=== PATIENT | male | born 1980 | race Two or more races ===

== ENCOUNTER 2024-03-06 19:06 | Inpatient (IN) | payer MEDICAID, OTHER ==
[~2024-03-06] VITALS: Ht 165.1 cm; Wt 80.5 kg
[2024-03-06 20:39] LABS: Basophils # (auto) 0.1 10 ^3/uL (0-0.2); Basophils % (auto) 0.6 % (0.0-2.0); Eosinophils # (auto) 0.3 10 ^3/uL (0-0.8); Eosinophils % (auto) 3.3 % (0.0-7.0); Hematocrit 44.9 % (41.0-53.0); Hemoglobin 15.4 g/dL (13.5-17.5); Lymphocytes # (auto) 2.8 10 ^3/uL (0.4-5.4); Lymphocytes % (auto) 26.6 % (10.0-50.0); Mean Corpuscular Hemoglobin 30.5 pg (28.0-32.0); Mean Corpuscular Hgb Conc. 34.2 g/dL (32.0-36.0); Mean Corpuscular Volume 89.3 fL (80.0-100.0); Monocytes # (auto) 0.8 10 ^3/uL (0-1.3); Monocytes % (auto) 7.9 % (0.0-12.0); Neutrophils # (auto) 6.4 10 ^3/uL (1.6-8.6); Neutrophils % (auto) 61.6 % (37.0-80.0); Nucleated Red Blood Cells % 0.1 %; Red Blood Cells 5.03 10^6/uL (4.5-5.90); Red Cell Distribution Width 13.2 % (11.8-14.3); White Blood Cell 10.4 10^3/uL (4.4-10.8)
[2024-03-06 21:00] LABS: Alanine Aminotransferase 30 U/L (7-40); Albumin 4.2 g/dL (3.2-4.8); Alkaline Phosphatase 108 U/L (46-116); Anion Gap 7 (5-15); Aspartate Aminotransferase 20 U/L (13-40); BUN/Creatinine Ratio 22.4 (10.0-20.0); Bilirubin, Total 0.6 mg/dL (0.2-1.0); Blood Urea Nitrogen 22 mg/dL (9-23); Calcium 9.3 mg/dL (8.7-10.4); Carbon Dioxide 27 mmol/L (20-30); Chloride 102 mmol/L (98-107); Glucose 94 mg/dL (74-106); Lipase 102 U/L (12-53); Potassium 4.3 mmol/L (3.5-5.1); Sodium 136 mmol/L (136-145); Total Protein 6.9 g/dL (5.7-8.2)
[2024-03-06 22:21] LABS: Urine Bacteria None Seen /hpf (None Seen)
[2024-03-06 22:33] LABS: Urine Blood Negative /uL (Negative); Urine Clarity Clear (Clear); Urine Color Light-Yellow (Yellow); Urine Mucus FEW (None Seen); Urine Protein, UAD Negative (Negative); Urine Specific Gravity 1.018 (1.001-1.035); Urine Urobilinogen Normal (Negative); Urine WBC 1 /hpf (0 - 3); Urine pH 5.5 (5.0-9.0)
[2024-03-06] MEDS: cefTRIAXone 1GM/50ML D5W 50 ML IV ONE (22:39)
[2024-03-06] MEDS: SODIUM CHLORIDE 0.9% 1,000 ML IV ONE ×2 (22:45→23:06)
[2024-03-06 22:47] VITALS: PULSE 85; RESP 20; O2SAT 97
[2024-03-06] MEDS ORDERED: ONDANSETRON HCL 4 MG/2 ML VIAL IV PRN (23:00)
[2024-03-06] MEDS: SODIUM CHLORIDE 0.9% 1,000 ML IV SCH (23:00)
[2024-03-06] MEDS ORDERED: MORPHINE SULFATE INJ 2 MG/ml SYRG IV PRN (23:00)
[2024-03-06] MEDS: metroNIDAZOLE 500MG/100ML 100 ML IV ONE (23:05)
[2024-03-06] MEDS: ONDANSETRON HCL 4 MG/2 ML VIAL IV ONE (23:12)
[2024-03-06] MEDS: MORPHINE SULFATE 4 MG/ML SYR/VIAL IV ONE (23:13)
[2024-03-06] MEDS: HYDROmorphone HCL 2 MG/ML VL/or syr IV ONE ×2 (23:34)
[2024-03-06 23:38] LABS: INR 1.07 (0.9-1.15); Partial Thromboplastin Time 29.9 SEC (24.5-34.5); Prothrombin Time 11.3 sec (9.3-11.8)
[2024-03-07] VITALS (7 sets, daily range): BP systolic 115–131; BP diastolic 54–70; PULSE 54–88; RESP 16–20; TEMP 97.4–98.5; O2SAT 96–100
[2024-03-07] MEDS: metroNIDAZOLE 500MG/100ML 100 ML IV SCH (05:17)
[2024-03-07 06:08] LABS: Basophils # (auto) 0.1 10 ^3/uL (0-0.2); Basophils % (auto) 1.1 % (0.0-2.0); Eosinophils # (auto) 0.3 10 ^3/uL (0-0.8); Eosinophils % (auto) 4.9 % (0.0-7.0); Hematocrit 41.3 % (41.0-53.0); Hemoglobin 14.2 g/dL (13.5-17.5); Lymphocytes # (auto) 1.8 10 ^3/uL (0.4-5.4); Lymphocytes % (auto) 27.1 % (10.0-50.0); Mean Corpuscular Hemoglobin 31.1 pg (28.0-32.0); Mean Corpuscular Hgb Conc. 34.4 g/dL (32.0-36.0); Mean Corpuscular Volume 90.3 fL (80.0-100.0); Monocytes # (auto) 0.6 10 ^3/uL (0-1.3); Monocytes % (auto) 9.4 % (0.0-12.0); Neutrophils # (auto) 3.8 10 ^3/uL (1.6-8.6); Neutrophils % (auto) 57.5 % (37.0-80.0); Red Blood Cells 4.57 10^6/uL (4.5-5.90); White Blood Cell 6.6 10^3/uL (4.4-10.8)
[2024-03-07 06:18] LABS: Alanine Aminotransferase 21 U/L (7-40); Albumin 3.6 g/dL (3.2-4.8); Alkaline Phosphatase 87 U/L (46-116); Anion Gap 3 (5-15); Aspartate Aminotransferase 12 U/L (13-40); BUN/Creatinine Ratio 15.9 (10.0-20.0); Bilirubin, Total 0.7 mg/dL (0.2-1.0); Blood Urea Nitrogen 13 mg/dL (9-23); Calcium 8.5 mg/dL (8.7-10.4); Carbon Dioxide 28 mmol/L (20-30); Chloride 108 mmol/L (98-107); Glucose 108 mg/dL (74-106); Potassium 3.9 mmol/L (3.5-5.1); Sodium 139 mmol/L (136-145); Total Protein 6.1 g/dL (5.7-8.2)
[2024-03-07] MEDS: D5W/ SOD CHL 0.9%/KCL 20MEQ 1,000 ML IV SCH (16:05)
[2024-03-07] MEDS: cefTRIAXone 1GM/50ML D5W 50 ML IV SCH (22:38)
[2024-03-08] VITALS (8 sets, daily range): BP systolic 99–151; BP diastolic 49–88; PULSE 64–86; RESP 14–20; TEMP 97.5–98.5; O2SAT 92–98
[2024-03-08 07:23] LABS: Basophils # (auto) 0.1 10 ^3/uL (0-0.2); Basophils % (auto) 0.9 % (0.0-2.0); Eosinophils # (auto) 0.3 10 ^3/uL (0-0.8); Eosinophils % (auto) 3.6 % (0.0-7.0); Hematocrit 43.1 % (41.0-53.0); Hemoglobin 14.4 g/dL (13.5-17.5); Lymphocytes # (auto) 1.4 10 ^3/uL (0.4-5.4); Lymphocytes % (auto) 20.1 % (10.0-50.0); Mean Corpuscular Hemoglobin 30.5 pg (28.0-32.0); Mean Corpuscular Hgb Conc. 33.5 g/dL (32.0-36.0); Mean Corpuscular Volume 90.9 fL (80.0-100.0); Monocytes # (auto) 0.6 10 ^3/uL (0-1.3); Monocytes % (auto) 8.8 % (0.0-12.0); Neutrophils # (auto) 4.8 10 ^3/uL (1.6-8.6); Neutrophils % (auto) 66.6 % (37.0-80.0); Nucleated Red Blood Cells % 0.1 %; Red Blood Cells 4.74 10^6/uL (4.5-5.90); Red Cell Distribution Width 13.3 % (11.8-14.3); White Blood Cell 7.2 10^3/uL (4.4-10.8)
[2024-03-08 07:38] LABS: Anion Gap 6 (5-15); Carbon Dioxide 27 mmol/L (20-30); Chloride 107 mmol/L (98-107); Sodium 140 mmol/L (136-145)
[2024-03-08 07:40] LABS: Calcium 9.1 mg/dL (8.7-10.4)
[2024-03-08 07:43] LABS: Glucose 101 mg/dL (74-106)
[2024-03-08 07:45] LABS: BUN/Creatinine Ratio 13.2 (10.0-20.0); Blood Urea Nitrogen 12 mg/dL (9-23)
[2024-03-08 08:51] LABS: Hepatitis B Surface Antigen Negative (Negative)
[2024-03-08 09:13] LABS: Hepatitis C Antibody Negative (Negative)
[2024-03-09] VITALS (7 sets, daily range): BP systolic 114–136; BP diastolic 55–82; PULSE 74–83; RESP 16–18; TEMP 97.4–98.2; O2SAT 95–98
[2024-03-09 06:15] LABS: Basophils # (auto) 0.1 10 ^3/uL (0-0.2); Basophils % (auto) 1.1 % (0.0-2.0); Eosinophils # (auto) 0.2 10 ^3/uL (0-0.8); Eosinophils % (auto) 4.1 % (0.0-7.0); Hematocrit 42.1 % (41.0-53.0); Hemoglobin 14.4 g/dL (13.5-17.5); Lymphocytes # (auto) 1.6 10 ^3/uL (0.4-5.4); Lymphocytes % (auto) 26.1 % (10.0-50.0); Mean Corpuscular Hemoglobin 30.5 pg (28.0-32.0); Mean Corpuscular Hgb Conc. 34.1 g/dL (32.0-36.0); Mean Corpuscular Volume 89.6 fL (80.0-100.0); Monocytes # (auto) 0.5 10 ^3/uL (0-1.3); Monocytes % (auto) 8.8 % (0.0-12.0); Neutrophils # (auto) 3.6 10 ^3/uL (1.6-8.6); Neutrophils % (auto) 59.9 % (37.0-80.0); Red Cell Distribution Width 12.8 % (11.8-14.3)
[2024-03-09 06:29] LABS: Anion Gap 6 (5-15); Carbon Dioxide 28 mmol/L (20-30); Chloride 106 mmol/L (98-107); Potassium 4.1 mmol/L (3.5-5.1); Sodium 140 mmol/L (136-145)
[2024-03-09 06:30] LABS: Calcium 8.9 mg/dL (8.7-10.4)
[2024-03-09 06:35] LABS: BUN/Creatinine Ratio 9.7 (10.0-20.0); Blood Urea Nitrogen 9 mg/dL (9-23); Glucose 119 mg/dL (74-106)
[2024-03-09] MEDS: IOHEXOL 300 MG/ML 100ML BOTTLE IJ ONE (12:57)
[2024-03-09] MEDS: SODIUM CHLORIDE 0.9% 1,000 ML IV SCH (15:00)
[2024-03-10] VITALS (7 sets, daily range): BP systolic 102–132; BP diastolic 58–71; PULSE 66–78; RESP 14–20; TEMP 36.9; O2SAT 93–98
[2024-03-11] VITALS (7 sets, daily range): BP systolic 105–150; BP diastolic 62–89; PULSE 64–78; RESP 16–20; TEMP 97–98.4; O2SAT 93–97
[2024-03-11] MEDS: metroNIDAZOLE 500 MG TAB PO SCH (15:54)
[2024-03-12] VITALS (7 sets, daily range): BP systolic 107–136; BP diastolic 66–79; PULSE 58–94; RESP 14–18; TEMP 98–98.6; O2SAT 96–99
[2024-03-13 04:55] VITALS: BP 110/62; PULSE 57; RESP 17; TEMP 97.8; O2SAT 97
[2024-03-13 05:59] LABS: Basophils # (auto) 0.1 10 ^3/uL (0-0.2); Basophils % (auto) 1.2 % (0.0-2.0); Eosinophils # (auto) 0.2 10 ^3/uL (0-0.8); Eosinophils % (auto) 5.6 % (0.0-7.0); Hematocrit 40.6 % (41.0-53.0); Hemoglobin 14.1 g/dL (13.5-17.5); Lymphocytes # (auto) 1.9 10 ^3/uL (0.4-5.4); Lymphocytes % (auto) 43.4 % (10.0-50.0); Mean Corpuscular Hemoglobin 30.9 pg (28.0-32.0); Mean Corpuscular Hgb Conc. 34.7 g/dL (32.0-36.0); Monocytes # (auto) 0.4 10 ^3/uL (0-1.3); Monocytes % (auto) 9.5 % (0.0-12.0); Neutrophils # (auto) 1.8 10 ^3/uL (1.6-8.6); Neutrophils % (auto) 40.3 % (37.0-80.0); Nucleated Red Blood Cells % 0.2 %; Red Blood Cells 4.56 10^6/uL (4.5-5.90); Red Cell Distribution Width 12.8 % (11.8-14.3); White Blood Cell 4.3 10^3/uL (4.4-10.8)
[2024-03-13 06:22] LABS: Alanine Aminotransferase 40 U/L (7-40); Albumin 3.6 g/dL (3.2-4.8); Alkaline Phosphatase 74 U/L (46-116); Anion Gap 6 (5-15); Aspartate Aminotransferase 40 U/L (13-40); Bilirubin, Total 0.3 mg/dL (0.2-1.0); Calcium 8.8 mg/dL (8.7-10.4); Carbon Dioxide 27 mmol/L (20-30); Chloride 108 mmol/L (98-107); Glucose 95 mg/dL (74-106); Potassium 3.9 mmol/L (3.5-5.1); Sodium 141 mmol/L (136-145); Total Protein 5.9 g/dL (5.7-8.2)
[2024-03-13 06:30] LABS: BUN/Creatinine Ratio 5.7 (10.0-20.0); Blood Urea Nitrogen < 5 mg/dL (9-23)
[2024-03-13 09:00] VITALS: BP 109/74; PULSE 59; RESP 17; TEMP 97.4; O2SAT 97
[2024-03-13] MEDS ORDERED: IOHEXOL 300 MG/ML 100ML BOTTLE IJ ONE (12:30)
[2024-03-13 13:10] VITALS: BP 119/75; PULSE 58; RESP 17; TEMP 98; O2SAT 96
[2024-03-13 17:00] VITALS: BP 122/77; PULSE 65; RESP 17; TEMP 98; O2SAT 98
[2024-03-13 20:00] VITALS: BP 137/75; PULSE 61; RESP 18; TEMP 97.9; O2SAT 97
[2024-03-14 01:00] VITALS: BP 99/51; PULSE 60; RESP 18; TEMP 97.9; O2SAT 99
[2024-03-14 05:00] VITALS: BP 107/76; PULSE 58; RESP 17; TEMP 98.4; O2SAT 95
[2024-03-14 09:00] VITALS: BP 130/66; PULSE 81; RESP 17; TEMP 98; O2SAT 97
[2024-03-14] MEDS ORDERED: LEVO500T91 PO (11:04)
[2024-03-14] MEDS ORDERED: MET500T PO (11:04)
== END 2024-03-14 16:37 | disposition home or self-care (01) | DRG 244 ==
LOC: ER 19:06 → OVERFLOW 23:01 → WEST WING 23:40
PROVIDERS: ADMIT Nurse Practitioner; ATTEND Internal Medicine
DX: K57.20 Diverticulitis of large intestine with perforation and abscess without bleeding (principal); E66.9 Obesity, unspecified; E86.0 Dehydration; K52.9 Noninfective gastroenteritis and colitis, unspecified; I10 Essential (primary) hypertension; Z88.0 Allergy status to penicillin; Z68.29 Body mass index [BMI] 29.0-29.9, adult; Z79.899 Other long term (current) drug therapy
CPT/HCPCS: 36415; 74176; 74177; 80048; 80053; 81001; 83605; 83690; 85025; 85610; 85730; 86803; 87040; 87340; 96365; 96367; 96375; G0378; J2405; J3490